=== PATIENT | male | born 1965 | race Hispanic/Latino ===

== ENCOUNTER 2021-11-06 15:47 | Emergency (ER) | payer OTHER ==
--- NOTE | 2021-11-06 16:13 | Emergency Department Report ---
ED General Adult HPI - General Chief complaint: Cardiac Arrest/CPR Stated complaint: CARDIAC ARREST PUI?: No Time Seen by Provider: 11/06/21 16:12 Source: family, EMS Mode of arrival: Stretcher Limitations: Other - History of Present Illness Initial comments: c stated that his breathing was getting heavier and heavier this morining and hasn;t been eating for the last 2 dys has been on fentanyl and drugs all came out for [place] with no chest pain, on arrival, pt laying in bloody emesis described as "baked beans" witnessed arrest by bystanders, down since 1500 -: hour(s) Associated Symptoms: denies: denies other symptoms, confusion ED Review of Systems ROS: Stated complaint: CARDIAC ARREST Other details as noted in HPI Comment: Unobtainable due to pts medical conditions ED Past Medical Hx - Past Medical History Previous Medical History?: Yes Hx Hypertension: No Additional medical history: drug abuse ED Physical Exam - General Limitations: Other General appearance: other (unconcious) - Head Head exam: Present: atraumatic - ENT ENT exam: Present: other (black emesis ) - Neck Neck exam: Present: normal inspection - Respiratory Respiratory exam: Present: other (no spont pulse ) - Cardiovascular Cardiovascular Exam: Present: other - exam: Present: normal inspection - Intubation Time Out Performed: No Laryngoscope: fiberoptic video scope Size: 3 Assist Device Used: fiberoptic device ET Tube Size: 7.5 Tube Secured Depth (cm): 24 Tube Secured Location: lips Tube Placement Confirmation: visualized tube passing t, equal breath sounds chikis at Patient Tolerated Procedure: well, no complications Intubation Complications: none ED Medical Decision Making - Medical Decision Making intubated on arrival , BS was low d 50 given 4 cycles of epi bicarb and calicum , shocked at 200 asystole the whole time Critical care attestation.: If time is entered above; I have spent that time in minutes in the direct care of this critically ill patient, excluding procedure time. ED Disposition Clinical Impression: Cardiac arrest Disposition: 20 Is pt being admited?: No Does the pt Need Aspirin: No
[2021-11-06] MEDS ORDERED: EPINEPHrine 1 MG/10 ML SYRINGE ONE (22:40)
[2021-11-06] MEDS ORDERED: SODIUM BICARB 8.4% 50 MEQ/50 ML SYRINGE IV ONE (22:40)
[2021-11-06] MEDS ORDERED: CALCIUM CHLORIDE 1,000 MG/10 ML SYRINGE IV ONE (22:40)
[2021-11-06] MEDS ORDERED: NALOXONE 2 MG/2 ML INJ ONE (22:40)
[2021-11-06] MEDS ORDERED: DEXTROSE 50% IN WATER (25GM) 50 ML SYRINGE IV ONE (22:40)
== END 2021-11-06 21:30 ==
LOC: ED 15:47
DX: I46.9 Cardiac arrest, cause unspecified (principal)
CPT/HCPCS: 31500; 99285; J0171; J2310; J3490